=== PATIENT | female | born 1930 | race Caucasian/White ===

== ENCOUNTER 2016-07-24 08:30 | Emergency (ER) | payer MEDICARE, BC ==
[~2016-07-24] VITALS: Ht 157.5 cm; Wt 80.0 kg
[~2016-07-24 08:30] MED LIST: ADVAIR DISK1 IN; ALBUTERO3 PO; ALBUTEROL S2.5 MG/.5 IN; ALBUTEROL0.5 % IN; AMLODIPINE5 MG PO; ASPIR-TRIN325 MG OR; ASPIRIN LOW DOS81 M2 PO; ASPIRIN325 MG PO; ASPIRIN81 MG PO; AVELOX400 MG PO; BAYER ASA325 MG OR; BLOOD PRESSURE MED; CEPHALEXIN500 MG PO; CIPRO XR500 MG OR; CLARITIN10 M2 PO; CRESTOR20 MG OR; DILANTIN100 MG OR; DILANTIN100 MG PO; DIOVAN160 MG PO; DIOVAN40 MG OR; DIOVAN80 MG PO; DULERA INHALER IN; DULERA1 AE1 IN; FLAGYL500 MG OR; FLONASE NASAL50 MCG; FOLIC ACID1 MG PO; IMDUR30 MG PO; IRON325 M1 PO; ISOSORB MONO120 MG PO; ISOSORB MONO60 MG PO; KEPPRA100 MG/ML PO; Levaquin PO; MAXAIR AUTOH200 MCG IN; MECLIZINE25 MG PO; MEDDOSEPAK OR; MEDDOSEPAK PO; METO100T50 PO; METO50TA52 PO; METOCLOPRAM5 MG PO; NEXIUM20 MG PO; NITRO PUMP; NITRO-DUR0.4 MG/HR TD; NITROGLYCER0.4 MG PO; NORVASC2.5 MG PO; PANTOPRAZOLE SO40 MG PO; PLAVIX75 MG PO; PROTONIX40 M2 PO; PROTONIX40 MG PO; PULMICORT0.25 MG/2 PO; RANEXA PO; SINGULAIR 10 MG10 MG PO; SINGULAIR10 MG OR; SINGULAIR10 MG PO; SPIRIVA HANDIHALER IN; SPIRIVA IN; SYMBICORT 80-4.5MCG PO; SYMBICORT1 AE1 IN; THEOPHYLLINE S200 MG PO; THEOPHYLLINE S300 MG PO; TOPROL XL OR; TOPROL XL PO; TOPROL XL50 MG OR; ULTRAM50 M1 PO; VIMPAT100 MG PO; VIMPAT50 MG PO; VYTORIN 10/201 TAB PO; VYTORIN1 TA1 OR; VYTORIN1 TA2 PO; VYTORIN1 TA3 OR; VYTORIN1 TAB PO; XANAX0.25 MG PO; ZETIA10 MG OR; ZOFRAN4 MG/TAB PO; ZPAK OR; ZPAK PO
[2016-07-24] MEDS ORDERED: ZYRTEC10 MG PO (09:09)
[2016-07-24 09:14] LABS: HEMATOCRIT 37.6 % (37.0-47.0); HEMOGLOBIN 12.2 g/dl (12.0-16.0); IMMATURE GRANULOCYTES 0.5 % (0.0-1.0); MEAN CELL VOLUME 93.1 fL CALC (80.0-100.0); MEAN CORPUSCULAR HGB 30.2 pG CALC (26.0-32.0); MEAN CORPUSCULAR HGB CONC 32.4 g/L CALC (32.0-36.0); NEUT# 4.82 thou/uL (2.00-7.15); RED BLOOD COUNT 4.04 mill/uL (4.20-5.60); RED CELL DISTRI WIDTH 14.9 % (11.5-15.5)
[2016-07-24 09:27] LABS: PROTHROMBIN TIME 10.5 SECONDS (9.0-12.5)
[2016-07-24 09:28] LABS: ALKALINE PHOSPHATASE 71 u/l (38-126); AMYLASE 99 u/l (30-110); ANION GAP 16 (6-22 (CALC)); BILIRUBIN, TOTAL 0.4 mg/dL (0.0-1.4); BUN 29 mg/dL (8-23); BUN/CREATININE RATIO 30 (12-20 (CALC)); CALCIUM 9.3 mg/dL (8.4-10.2); CARBON DIOXIDE 28 mmol/l (22-30); CHLORIDE 105 mmol/l (95-108); GFR 53 ML/MIN (>=60 (CALC)); GFR FOR AFR.AMER. > 60 ML/MIN (>=60 (CALC)); GLUCOSE 90 mg/dL (82-115); LIPASE 161 u/l (23-300); POTASSIUM 4.7 mmol/l (3.5-5.1); SGOT/AST 23 u/l (9-36); SGPT/ALT 20 u/l (11-66); SODIUM 144 mmol/l (137-146); TOTAL PROTEIN 7.4 g/dL (6.3-8.2)
[2016-07-24 09:40] LABS: MYOGLOBIN 29 ng/mL (0 - 62)
[2016-07-24 09:57] LABS: URINE BILIRUBIN - DIPSTICK NEGATIVE (NEGATIVE); URINE BLOOD DIPSTICK NEGATIVE (NEGATIVE); URINE CLARITY CLEAR; URINE COLOR YELLOW; URINE GLUCOSE - DIPSTICK NEGATIVE (NEGATIVE); URINE KETONE NEGATIVE (NEGATIVE); URINE LEUK ESTERASE TRACE (NEGATIVE); URINE NITRITE - DIPSTICK NEGATIVE (Negative); URINE PH 5.5 (4.5-8.0); URINE PROTEIN - DIPSTICK NEGATIVE (NEG-TRACE); URINE UROBILINOGEN - DIPSTICK 0.2 E.U./dL (0.2)
[2016-07-24 12:33] VITALS: BP 127/49
== END 2016-07-24 12:42 | disposition home or self-care (01) ==
LOC: ED 08:30
PROVIDERS: Emergency Medicine
DX: R53.1 Weakness (principal); I10 Essential (primary) hypertension; R07.9 Chest pain, unspecified; R94.31 Abnormal electrocardiogram [ECG] [EKG]; R51 Headache

== ENCOUNTER 2017-03-06 07:55 | Emergency (ER) | payer MEDICARE, BC ==
[~2017-03-06] VITALS: Ht 157.5 cm; Wt 70.0 kg
[~2017-03-06 07:55] MED LIST changes: +ZYRTEC10 MG PO
[2017-03-06] MEDS ORDERED: SPIRIVA HANDIH18 MCG (08:06)
[2017-03-06 08:30] LABS: ALBUMIN 4.3 g/dL (3.2-5.0); ALKALINE PHOSPHATASE 59 u/l (38-126); ANION GAP 16 (6-22 (CALC)); BILIRUBIN, TOTAL 0.9 mg/dL (0.0-1.4); BUN 31 mg/dL (8-23); BUN/CREATININE RATIO 31 (12-20 (CALC)); CALCIUM 9.6 mg/dL (8.4-10.2); CARBON DIOXIDE 24 mmol/l (22-30); CHLORIDE 111 mmol/l (95-108); GFR 53 ML/MIN (>=60 (CALC)); GFR FOR AFR.AMER. > 60 ML/MIN (>=60 (CALC)); GLUCOSE 87 mg/dL (82-115); POTASSIUM 3.9 mmol/l (3.5-5.1); SGOT/AST 24 u/l (9-36); SGPT/ALT 25 u/l (11-66); SODIUM 148 mmol/l (137-146); TOTAL PROTEIN 7.5 g/dL (6.3-8.2)
[2017-03-06 08:33] LABS: HEMATOCRIT 40.5 % (37.0-47.0); HEMOGLOBIN 13.6 g/dl (12.0-16.0); IMMATURE GRANULOCYTES 0.4 % (0.0-1.0); MEAN CELL VOLUME 97.8 fL CALC (80.0-100.0); MEAN CORPUSCULAR HGB 32.9 pG CALC (26.0-32.0); MEAN CORPUSCULAR HGB CONC 33.6 g/L CALC (32.0-36.0); NEUT# 4.6 thou/uL (2.00-7.15); RED BLOOD COUNT 4.14 mill/uL (4.20-5.60); RED CELL DISTRI WIDTH 13.6 % (11.5-15.5)
[2017-03-06 08:43] LABS: MYOGLOBIN 37 ng/mL (0 - 62)
[2017-03-06 12:24] LABS: URINE BILIRUBIN - DIPSTICK NEGATIVE (NEGATIVE); URINE BLOOD DIPSTICK NEGATIVE (NEGATIVE); URINE CLARITY CLEAR; URINE COLOR YELLOW; URINE GLUCOSE - DIPSTICK NEGATIVE (NEGATIVE); URINE KETONE NEGATIVE (NEGATIVE); URINE LEUK ESTERASE NEGATIVE (NEGATIVE); URINE NITRITE - DIPSTICK NEGATIVE (Negative); URINE PROTEIN - DIPSTICK NEGATIVE (NEG-TRACE); URINE SPECIFIC GRAVITY >=1.030; URINE UROBILINOGEN - DIPSTICK 0.2 E.U./dL (0.2)
[2017-03-06] MEDS ORDERED: LEVAQUIN500 MG PO (12:36)
[2017-03-06 12:56] VITALS: BP 141/63
== END 2017-03-06 13:13 | disposition home or self-care (01) ==
LOC: ED 07:55
PROVIDERS: Emergency Medicine
DX: J20.9 Acute bronchitis, unspecified (principal); J44.1 Chronic obstructive pulmonary disease with (acute) exacerbation; R06.02 Shortness of breath; R05 Cough; I10 Essential (primary) hypertension; I25.810 Atherosclerosis of coronary artery bypass graft(s) without angina pectoris; Z95.1 Presence of aortocoronary bypass graft

== ENCOUNTER 2017-10-29 03:05 | Observation (INO) | payer MEDICARE, BC ==
[~2017-10-29] VITALS: Ht 157.5 cm; Wt 77.6 kg
[~2017-10-29 03:05] MED LIST changes: +LEVAQUIN500 MG PO; +SPIRIVA HANDIH18 MCG
--- NOTE | 2017-10-29 03:30 | NUR ---
PT STATES THAT WHILE SHE WAS OUT OF TOWN YESTERDAY SHE DEVELOPED CHEST PAIN WITH RADIATION TO LEFT SHOULDER/LEFT BACK AREA. PT TOOK NITRO THAT WAS DATED 2016 WITH MINIMAL EFFECT. STATES LAST NITRO TAKEN DATED 2017 DID HELP SOME BUT HAS NOT RELIEVED PAIN TOTALLY. (+) HISTORY FOR BYPASS SURGERY OVER 10 YEARS AGO.
[2017-10-29 03:32] LABS: HEMOGLOBIN 13.5 g/dl (12.0-16.0); IMMATURE GRANULOCYTES 0.1 % (0.0-1.0); MEAN CELL VOLUME 96.6 fL CALC (80.0-100.0); MEAN CORPUSCULAR HGB 32.6 pG CALC (26.0-32.0); MEAN CORPUSCULAR HGB CONC 33.8 g/L CALC (32.0-36.0); NEUT# 3.47 thou/uL (2.00-7.15); RED BLOOD COUNT 4.14 mill/uL (4.20-5.60); RED CELL DISTRI WIDTH 13.8 % (11.5-15.5)
[2017-10-29] MEDS ORDERED: VYTORIN1 TAB PO (03:43)
[2017-10-29 03:48] LABS: ALBUMIN 3.9 g/dL (3.2-5.0); AMYLASE 82 u/l (30-110); BILIRUBIN, TOTAL 0.3 mg/dL (0.0-1.4); BUN 32 mg/dL (8-23); BUN/CREATININE RATIO 24 (12-20 (CALC)); CARBON DIOXIDE 25 mmol/l (22-30); CHLORIDE 106 mmol/l (95-108); CREATININE 1.3 mg/dL (0.5-1.0); GFR 39 ML/MIN (>=60 (CALC)); GFR FOR AFR.AMER. 47 ML/MIN (>=60 (CALC)); LIPASE 245 u/l (23-300); POTASSIUM 4.5 mmol/l (3.5-5.1); SGOT/AST 23 u/l (9-36); SGPT/ALT 25 u/l (11-66); TOTAL PROTEIN 6.8 g/dL (6.3-8.2)
[2017-10-29 03:50] LABS: ACT PARTIAL THROMBO TIME 26.8 SECONDS (20.0-32.5); INTERNATIONAL NORMALIZED RATIO 0.9 RATIO (0.7-1.3); PROTHROMBIN TIME 10.5 SECONDS (9.0-12.5)
[2017-10-29 03:51] LABS: ALKALINE PHOSPHATASE 104 u/l (38-126); ANION GAP 14 (6-22 (CALC)); SODIUM 140 mmol/l (137-146)
[2017-10-29] MEDS ORDERED: ASPIRIN325 MG PO (03:51)
[2017-10-29] MEDS ORDERED: THEOPHYLLINE S200 MG PO (03:54)
[2017-10-29 04:00] LABS: MYOGLOBIN 25 ng/mL (0 - 62)
[2017-10-29 04:10] LABS: URINE BILIRUBIN - DIPSTICK NEGATIVE (NEGATIVE); URINE BLOOD DIPSTICK NEGATIVE (NEGATIVE); URINE COLOR YELLOW; URINE GLUCOSE - DIPSTICK NEGATIVE (NEGATIVE); URINE KETONE NEGATIVE (NEGATIVE); URINE LEUK ESTERASE NEGATIVE (NEGATIVE); URINE NITRITE - DIPSTICK NEGATIVE (Negative); URINE PH 5.5 (4.5-8.0); URINE PROTEIN - DIPSTICK NEGATIVE (NEG-TRACE); URINE SPECIFIC GRAVITY 1.025; URINE UROBILINOGEN - DIPSTICK 0.2 E.U./dL (0.2)
[2017-10-29 04:11] LABS: URINE CLARITY CLEAR
--- NOTE | 2017-10-29 04:19 | NUR ---
PT GIVES CHEST PAIN A 0-1 SCORE. STATES THAT NTG PILL IS TAKING PAIN AWAY. MORPHINE WITHHELD DUE TO DECREASED B/P.
--- NOTE | 2017-10-29 04:48 | NUR ---
pt resting comfortably at this time. Rates pain at 0 on 1:10 scale. Daughter at bedside.
--- NOTE | 2017-10-29 05:43 | NUR ---
Pt resting comfortably at this time. Pain free & awaiting room assignment. All test results back at this time. Troponin NEG.
--- NOTE | 2017-10-29 06:10 | NUR ---
Report called to Chitra MCCAIN in ICU. Transported on gurney to room with portable monitor.
--- NOTE | 2017-10-29 06:20 | NUR ---
PT TO UNIT VIA STRETCHER ACCOMPANIED BY ER STAFF. PT AMBULATED TO BED WITH MINIMAL ASSISTANCE. PT ORIENTED TO ROOM AND UNIT. DAUGHTER IN ROOM. PT AND DAUGHTER VERBALIZED UNDERSTANDING. CALL LIGHT IN REACH. WILL CONTINUE TO MONITOR
[2017-10-29 06:30] VITALS: BP 158/59
--- NOTE | 2017-10-29 07:45 | NUR ---
SHIFT CHANGE REPORT FROM AGGIE, PT AWAKE ALERT AND ORIENTED RESTING IN BED, C/O MILD CHEST PAIN AND HEADACHE, NITRO PATCH IN PLACE ON LEFT CHEST, CARDIAC AND VITALS MONITORING IN PROGRESS, ASSISTED PT TO BR AND BACK TO BED, ADMISSION ASSESSMENT DONE, WILL CONTINUE TO MONITOR, DAUGHTER AT BEDSIDE, CALL RAE IN REACH.
[2017-10-29 12:00] VITALS: BP 143/55
--- NOTE | 2017-10-29 13:16 | NUR ---
RELAXING IN BED AFTER CONSUMING MEAL, FAMILY VISITING, ALL NEEDS ADDRESSED, CALL RAE IN REACH.
--- NOTE | 2017-10-29 15:33 | NUR ---
SLEEPING AT THIS TIME, APPEARS COMFORTABLE WITH NON-LABORED BREATHING, MONITORS IN PLACE, CALL RAE IN REACH.
[2017-10-29 16:08] VITALS: BP 140/58
[2017-10-29 19:55] VITALS: BP 150/59
--- NOTE | 2017-10-29 19:55 | NUR ---
RECEIVED PT FROM ICU VIA WHEELCHAIR IN STABLE CONDITION AND ACCOMPANIED BY FAMILY. PT ALERT AND ORIENTED X 3 AND REPORTS MINOR HEADACHE. PT HAS NIRTIOGLYCERIN PASTE IN PLACE TO JACQUELIN. EDUCATE PT ON THE SIDE EFFECTS OF NITRO. PT VERBALIZES UNDERSTANDING. NO APPARENT ACUTE DISTRESS NOTED. WILL CONTINUE TO MONITOR.
--- NOTE | 2017-10-30 | NUR ---
PT RESTING WELL AND APPEARS NOT TO BE IN ANY APPARENT ACUTE DISTRTESS. WILL CONTINUE TO MONITOR.
[2017-10-30 00:37] VITALS: BP 118/58
--- NOTE | 2017-10-30 05:00 | NUR ---
PT SLEPT WELL DURING THE NIGHT. NO APPARENT ACUTE CHANGES NOTED IN PT'S CONDITION.
[2017-10-30 05:12] VITALS: BP 121/54
[2017-10-30 05:16] LABS: HEMATOCRIT 39.3 % (37.0-47.0); HEMOGLOBIN 12.9 g/dl (12.0-16.0); IMMATURE GRANULOCYTES 0.2 % (0.0-1.0); MEAN CELL VOLUME 96.6 fL CALC (80.0-100.0); MEAN CORPUSCULAR HGB 31.7 pG CALC (26.0-32.0); MEAN CORPUSCULAR HGB CONC 32.8 g/L CALC (32.0-36.0); NEUT# 2.82 thou/uL (2.00-7.15); RED BLOOD COUNT 4.07 mill/uL (4.20-5.60); RED CELL DISTRI WIDTH 13.6 % (11.5-15.5)
[2017-10-30 05:37] LABS: ANION GAP 10 (6-22 (CALC)); BUN 24 mg/dL (8-23); BUN/CREATININE RATIO 24 (12-20 (CALC)); CALCULATED LDLCHOLESTEROL 128 mg/dL (62-129 (CALC)); CARBON DIOXIDE 26 mmol/l (22-30); CHLORIDE 108 mmol/l (95-108); CHOLESTEROL HDL RATIO 3.1 (<4.4 (CALC)); GFR 53 ML/MIN (>=60 (CALC)); GFR FOR AFR.AMER. > 60 ML/MIN (>=60 (CALC)); HDL CHOLESTEROL 73 mg/dL (>=40); POTASSIUM 4.7 mmol/l (3.5-5.1); SODIUM 139 mmol/l (137-146); TOTAL TRIGLYCERIDES 137 mg/dl (30-149); VLDL CHOLESTROL 27 mg/dl (0-48 (CALC))
[2017-10-30 05:38] LABS: TOTAL CHOLESTEROL 228 mg/dl (0-199)
--- NOTE | 2017-10-30 07:22 | NUR ---
RECEIVED BEDSIDE REPORT FROM CAMILLA MCCAIN. RESTING IN SUPINE POSITION WITH EYES CLOSED, AWAKEN SEASILY. RESPS EVEN AND UNLABORED ON O2 VIA NC, TELE MONITOR IN PLACE. DENIES PAIN OR DISCOMFORT. PLAN OF CARE DISCUSSED. SAFETY PRECAUTIONS REINFORCED. BED IN LOWEST POSITION WITH WHEELS LOCKED. CALL LIGHT WITHIN REACH. ENCOURAGED PT TO CALL FOR ANY NEEDS.
[2017-10-30 07:54] VITALS: BP 165/62
--- NOTE | 2017-10-30 11:50 | NUR ---
SITTING IN BEDSIDE CHAIR, VISITORS AT BEDSIDE. RESPS EVEN AND UNLABORED ON ROOM AIR, TELE MONITOR IN PLACE. DENIES PAIN OR DISCOMFORT. CALL LIGHT WITHIN REACH. WILL CONTINUE TO MONITOR.
[2017-10-30 12:00] VITALS: BP 144/67
[2017-10-30 12:35] VITALS: BP 165/62
--- NOTE | 2017-10-30 12:40 | NUR ---
DR GIBSON AT BEDSIDE, NEW ORDERS RECEIVED.
--- NOTE | 2017-10-30 13:05 | NUR ---
DR LUI AT BEDSIDE, NEW ORDERS RECEIVED.
[2017-10-30] MEDS ORDERED: MEDDOSEPAK PO (13:20)
--- NOTE | 2017-10-30 13:58 | NUR ---
IV site discontinued, cath intact. No edema , no redness, voices no discomfort.
--- NOTE | 2017-10-30 14:02 | NUR ---
Discharge instructions given. Patient verbalizes understanding of same. Discharged in stable condition via Wheelchair to Home with family. All belongings sent with pt.
== END 2017-10-30 14:04 ==
LOC: ED 03:05 → ED-I 05:33 → ED 05:54 → MS2 05:57 → ICU 05:57 → MS2 20:02
PROVIDERS: Emergency Medicine; Nurse Practitioner; ADMIT Internal Medicine; ATTEND Internal Medicine
DX: I25.118 Atherosclerotic heart disease of native coronary artery with other forms of angina pectoris (principal); I13.10 Hypertensive heart and chronic kidney disease without heart failure, with stage 1 through stage 4 chronic kidney disease, or unspecified chronic kidney disease; N18.3 Chronic kidney disease, stage 3 (moderate); E78.5 Hyperlipidemia, unspecified; I65.22 Occlusion and stenosis of left carotid artery; T82.897A Other specified complication of cardiac prosthetic devices, implants and grafts, initial encounter; J44.9 Chronic obstructive pulmonary disease, unspecified; R01.1 Cardiac murmur, unspecified; R06.02 Shortness of breath; Y83.2 Surgical operation with anastomosis, bypass or graft as the cause of abnormal reaction of the patient, or of later complication, without mention of misadventure at the time of the procedure; Z95.1 Presence of aortocoronary bypass graft; Z95.5 Presence of coronary angioplasty implant and graft; Z85.3 Personal history of malignant neoplasm of breast; Z86.73 Personal history of transient ischemic attack (TIA), and cerebral infarction without residual deficits

== ENCOUNTER 2018-04-22 19:04 | Emergency (ER) | payer MEDICARE, BC ==
[~2018-04-22] VITALS: Ht 157.5 cm; Wt 77.3 kg
[2018-04-22] MEDS ORDERED: THEOPHYLLINE S300 MG PO (19:33)
[2018-04-22 22:20] VITALS: BP 162/72
== END 2018-04-22 22:27 | disposition home or self-care (01) ==
LOC: ED 19:04
DX: S02.32XA Fracture of orbital floor, left side, initial encounter for closed fracture (principal); S05.12XA Contusion of eyeball and orbital tissues, left eye, initial encounter; S80.01XA Contusion of right knee, initial encounter; R51 Headache; R22.0 Localized swelling, mass and lump, head; W01.198A Fall on same level from slipping, tripping and stumbling with subsequent striking against other object, initial encounter; Y93.01 Activity, walking, marching and hiking; Y92.008 Other place in unspecified non-institutional (private) residence as the place of occurrence of the external cause; J32.0 Chronic maxillary sinusitis; J32.2 Chronic ethmoidal sinusitis

== ENCOUNTER 2018-07-26 13:38 | Outpatient (REF) | payer MEDICARE, BC | END 2018-07-26 15:16 | disposition home or self-care (01) | LOC: INF 13:38 | PROVIDERS: ATTEND Internal Medicine | DX: M81.0 Age-related osteoporosis without current pathological fracture (principal); N18.9 Chronic kidney disease, unspecified | CPT/HCPCS: J0897 ==

== ENCOUNTER 2019-05-12 | Emergency (ER) | payer MEDICARE, BC ==
[2019-05-12] MEDS ORDERED: TRAMADOL HYDROC50 M1 PO (16:09)
== END 2019-05-12 16:33 | disposition home or self-care (01) ==
DX: S20.211A Contusion of right front wall of thorax, initial encounter (principal); S30.0XXA Contusion of lower back and pelvis, initial encounter; S40.012A Contusion of left shoulder, initial encounter; S40.022A Contusion of left upper arm, initial encounter; I10 Essential (primary) hypertension; I25.10 Atherosclerotic heart disease of native coronary artery without angina pectoris; W01.0XXA Fall on same level from slipping, tripping and stumbling without subsequent striking against object, initial encounter; Y93.E9 Activity, other interior property and clothing maintenance; Y92.003 Bedroom of unspecified non-institutional (private) residence as the place of occurrence of the external cause; Z95.1 Presence of aortocoronary bypass graft

== ENCOUNTER 2019-05-23 19:46 | Emergency (ER) | payer MEDICARE, BC ==
[~2019-05-23 19:46] MED LIST changes: +TRAMADOL HYDROC50 M1 PO
[2019-05-23 22:43] VITALS: BP 172/80
== END 2019-05-23 22:43 | disposition home or self-care (01) ==
LOC: ED 19:46
DX: I10 Essential (primary) hypertension (principal); I25.10 Atherosclerotic heart disease of native coronary artery without angina pectoris; Z95.1 Presence of aortocoronary bypass graft

== ENCOUNTER 2020-03-16 09:01 | Observation (INO) | payer MEDICARE, BC ==
[~2020-03-16] VITALS: Ht 157.5 cm; Wt 78.4 kg
[2020-03-16 09:39] LABS: IMMATURE GRANULOCYTES 0.4 % (0.0-5.0); MEAN CELL VOLUME 96.8 fL CALC (80.0-100.0); MEAN CORPUSCULAR HGB 30.3 pG CALC (26.0-32.0); MEAN CORPUSCULAR HGB CONC 31.3 g/dL CAL (32.0-36.0); NEUT# 6.16 thou/uL (2.00-7.15); RED BLOOD COUNT 4.36 mill/uL (4.20-5.60); RED CELL DISTRI WIDTH 16.4 % (11.5-15.5)
[2020-03-16] MEDS ORDERED: PREDNISONE10 MG PO (09:44)
[2020-03-16] MEDS ORDERED: DOXYCYCLINE100 MG PO (09:44)
[2020-03-16 09:51] LABS: ALBUMIN 3.8 g/dL (3.2-5.0); ALKALINE PHOSPHATASE 45 u/l (38-126); ANION GAP 11 (6-22 (CALC)); BUN 22 mg/dL (8-23); BUN/CREATININE RATIO 23 (12-20 (CALC)); CARBON DIOXIDE 29 mmol/l (22-30); CHLORIDE 104 mmol/l (95-108); CREATININE 0.9 mg/dL (0.5-1.0); GFR 59 ML/MIN (>=60 (CALC)); GFR FOR AFR.AMER. > 60 ML/MIN (>=60 (CALC)); POTASSIUM 4.5 mmol/l (3.5-5.1); SGOT/AST 20 u/l (9-36); SODIUM 140 mmol/l (137-146); TOTAL PROTEIN 6.2 g/dL (6.3-8.2)
[2020-03-16 09:53] LABS: BILIRUBIN, TOTAL 0.7 mg/dL (0.0-1.4)
[2020-03-16 09:54] LABS: HEMATOCRIT 42.2 % (37.0-47.0); HEMOGLOBIN 13.2 g/dl (12.0-16.0)
[2020-03-16 13:30] VITALS: BP 145/60
[2020-03-16 15:00] VITALS: BP 146/65
[2020-03-16 18:55] VITALS: BP 121/58
[2020-03-16 23:57] VITALS: BP 155/69
[2020-03-17 04:44] VITALS: BP 208/80
[2020-03-17 05:11] VITALS: BP 208/84
[2020-03-17 05:28] LABS: HEMATOCRIT 41.7 % (37.0-47.0); HEMOGLOBIN 13.1 g/dl (12.0-16.0); IMMATURE GRANULOCYTES 0.4 % (0.0-5.0); MEAN CELL VOLUME 95.4 fL CALC (80.0-100.0); MEAN CORPUSCULAR HGB CONC 31.4 g/dL CAL (32.0-36.0); NEUT# 5.72 thou/uL (2.00-7.15); RED BLOOD COUNT 4.37 mill/uL (4.20-5.60); RED CELL DISTRI WIDTH 16.3 % (11.5-15.5)
[2020-03-17 06:09] LABS: MAGNESIUM 2.2 mg/dL (1.6-2.3)
[2020-03-17 06:24] VITALS: BP 174/60
[2020-03-17 08:30] VITALS: BP 136/56
[2020-03-17 10:40] VITALS: BP 122/47
[2020-03-17] MEDS ORDERED: MECLIZINE25 MG PO (12:05)
== END 2020-03-17 13:18 | disposition home or self-care (01) ==
LOC: ED 09:01 → ED-I 10:26 → MS2 11:06 → ED 11:06 → MS2 11:07
PROVIDERS: Family Medicine; Nurse Practitioner; ADMIT Internal Medicine; ATTEND Internal Medicine
DX: R07.9 Chest pain, unspecified (principal); R42 Dizziness and giddiness; I10 Essential (primary) hypertension; I25.10 Atherosclerotic heart disease of native coronary artery without angina pectoris; E78.5 Hyperlipidemia, unspecified; J44.9 Chronic obstructive pulmonary disease, unspecified; I73.9 Peripheral vascular disease, unspecified; Z95.1 Presence of aortocoronary bypass graft; Z86.73 Personal history of transient ischemic attack (TIA), and cerebral infarction without residual deficits; Z20.828 Contact with and (suspected) exposure to other viral communicable diseases
CPT/HCPCS: G0378; J1650

== ENCOUNTER 2020-09-18 23:44 | Emergency (ER) | payer MEDICARE, BC ==
[~2020-09-18 23:44] MED LIST changes: +DOXYCYCLINE100 MG PO; +PREDNISONE10 MG PO
[2020-09-19] MEDS ORDERED: BACTRIM DS1 TAB PO (00:16)
[2020-09-19 01:16] VITALS: BP 162/78
== END 2020-09-19 01:20 | disposition home or self-care (01) ==
LOC: ED 23:44
DX: S41.111A Laceration without foreign body of right upper arm, initial encounter (principal); S61.411A Laceration without foreign body of right hand, initial encounter; S81.811A Laceration without foreign body, right lower leg, initial encounter; S81.812A Laceration without foreign body, left lower leg, initial encounter; I10 Essential (primary) hypertension; I25.10 Atherosclerotic heart disease of native coronary artery without angina pectoris; J45.909 Unspecified asthma, uncomplicated; W01.0XXA Fall on same level from slipping, tripping and stumbling without subsequent striking against object, initial encounter; Y92.009 Unspecified place in unspecified non-institutional (private) residence as the place of occurrence of the external cause; Z95.1 Presence of aortocoronary bypass graft

== ENCOUNTER 2020-12-31 12:16 | Observation (INO) | payer MEDICARE, BC ==
[~2020-12-31] VITALS: Ht 157.5 cm; Wt 79.4 kg
[~2020-12-31 12:16] MED LIST changes: +BACTRIM DS1 TAB PO
[2020-12-31 13:14] LABS: HEMATOCRIT 38.6 % (37.0-47.0); HEMOGLOBIN 12.1 g/dl (12.0-16.0); IMMATURE GRANULOCYTES 0.3 % (0.0-5.0); MEAN CELL VOLUME 97.2 fL CALC (80.0-100.0); MEAN CORPUSCULAR HGB 30.5 pG CALC (26.0-32.0); MEAN CORPUSCULAR HGB CONC 31.3 g/dL CAL (32.0-36.0); NEUT# 9.69 thou/uL (2.00-7.15); RED BLOOD COUNT 3.97 mill/uL (4.20-5.60); RED CELL DISTRI WIDTH 12.9 % (11.5-15.5)
[2020-12-31 13:29] LABS: LIPASE 108 u/l (23-300)
[2020-12-31 13:40] LABS: URINE BILIRUBIN - DIPSTICK NEGATIVE (NEGATIVE); URINE BLOOD DIPSTICK NEGATIVE (NEGATIVE); URINE COLOR YELLOW; URINE GLUCOSE - DIPSTICK NEGATIVE (NEGATIVE); URINE KETONE NEGATIVE (NEGATIVE); URINE LEUK ESTERASE NEGATIVE (NEGATIVE); URINE PROTEIN - DIPSTICK NEGATIVE (NEG-TRACE); URINE UROBILINOGEN - DIPSTICK 0.2 E.U./dL (0.2)
[2020-12-31 13:42] LABS: URINE NITRITE - DIPSTICK NEGATIVE (Negative)
[2020-12-31 13:52] LABS: ALBUMIN 3.6 g/dL (3.2-5.0); ALKALINE PHOSPHATASE 46 u/l (38-126); ANION GAP 10 (6-22 (CALC)); BILIRUBIN, TOTAL 0.5 mg/dL (0.0-1.4); BUN 19 mg/dL (8-23); BUN/CREATININE RATIO 20 (12-20 (CALC)); CARBON DIOXIDE 31 mmol/l (22-30); CHLORIDE 99 mmol/l (95-108); GFR 52 ML/MIN (>=60 (CALC)); GFR FOR AFR.AMER. > 60 ML/MIN (>=60 (CALC)); POTASSIUM 3.6 mmol/l (3.5-5.1); SGOT/AST 19 u/l (9-36); SODIUM 136 mmol/l (137-146)
[2020-12-31 13:53] LABS: ACT PARTIAL THROMBO TIME 20.2 SECONDS (20.0-32.5); PROTHROMBIN TIME 10.6 SECONDS (9.0-12.5)
[2020-12-31] MEDS ORDERED: RANOLAZINE ER500 MG PO (18:09)
[2020-12-31] MEDS ORDERED: XANAX0.25 MG PO (18:11)
[2020-12-31] MEDS ORDERED: REGLAN10 MG PO (18:12)
[2020-12-31] MEDS ORDERED: QVAR REDIH80 MCG/ACT IN (18:16)
[2020-12-31] MEDS ORDERED: ALBUTEROL SUL0.083 % IN (18:20)
[2020-12-31 19:38] VITALS: BP 147/68
[2020-12-31 23:45] VITALS: BP 148/57
[2021-01-01 06:15] LABS: HEMATOCRIT 41.1 % (37.0-47.0); HEMOGLOBIN 12.8 g/dl (12.0-16.0); MEAN CELL VOLUME 97.4 fL CALC (80.0-100.0); MEAN CORPUSCULAR HGB 30.3 pG CALC (26.0-32.0); MEAN CORPUSCULAR HGB CONC 31.1 g/dL CAL (32.0-36.0); RED BLOOD COUNT 4.22 mill/uL (4.20-5.60)
[2021-01-01 06:37] LABS: ANION GAP 11 (6-22 (CALC)); BUN 18 mg/dL (8-23); BUN/CREATININE RATIO 21 (12-20 (CALC)); CARBON DIOXIDE 29 mmol/l (22-30); CHLORIDE 102 mmol/l (95-108); CREATININE 0.8 mg/dL (0.5-1.0); GFR > 60 ML/MIN (>=60 (CALC)); GFR FOR AFR.AMER. > 60 ML/MIN (>=60 (CALC)); MAGNESIUM 2.2 mg/dL (1.6-2.3); SODIUM 138 mmol/l (137-146); TOTAL CHOLESTEROL 212 mg/dl (0-199); TOTAL TRIGLYCERIDES 128 mg/dl (30-149); VLDL CHOLESTROL 26 mg/dl (0-48 (CALC))
[2021-01-01 06:48] LABS: CALCULATED LDLCHOLESTEROL 72 mg/dL (62-129 (CALC)); CHOLESTEROL HDL RATIO 1.9 (<4.4 (CALC)); HDL CHOLESTEROL 114 mg/dL (>=40)
[2021-01-01 07:00] VITALS: BP 155/77
[2021-01-01 10:15] VITALS: BP 155/77
== END 2021-01-01 11:40 | disposition home or self-care (01) ==
LOC: ED 12:16 → ED-I 14:16 → ED 15:08 → ED-I 15:09
PROVIDERS: Family Medicine; Nurse Practitioner; Physician Assistant Surgical; ADMIT Hospitalist; ATTEND Hospitalist
DX: R07.9 Chest pain, unspecified (principal); D72.829 Elevated white blood cell count, unspecified; I12.9 Hypertensive chronic kidney disease with stage 1 through stage 4 chronic kidney disease, or unspecified chronic kidney disease; N18.30 Chronic kidney disease, stage 3 unspecified; I25.10 Atherosclerotic heart disease of native coronary artery without angina pectoris; J44.9 Chronic obstructive pulmonary disease, unspecified; E78.5 Hyperlipidemia, unspecified; I73.9 Peripheral vascular disease, unspecified; G40.909 Epilepsy, unspecified, not intractable, without status epilepticus; Z86.73 Personal history of transient ischemic attack (TIA), and cerebral infarction without residual deficits; Z95.1 Presence of aortocoronary bypass graft; Z95.5 Presence of coronary angioplasty implant and graft; Z85.3 Personal history of malignant neoplasm of breast; Z92.3 Personal history of irradiation; Z20.822 Contact with and (suspected) exposure to COVID-19
CPT/HCPCS: J1650; Q9967

== ENCOUNTER 2021-03-10 17:39 | Emergency (ER) | payer MEDICARE, BC ==
[~2021-03-10] VITALS: Ht 157.5 cm; Wt 77.0 kg
[~2021-03-10 17:39] MED LIST changes: +ALBUTEROL SUL0.083 % IN; +QVAR REDIH80 MCG/ACT IN; +RANOLAZINE ER500 MG PO; +REGLAN10 MG PO
[2021-03-10] MEDS ORDERED: BACTROBAN TOP (19:23)
[2021-03-10] MEDS ORDERED: DOXYCYCLINE100 MG PO (19:23)
[2021-03-10 20:30] VITALS: BP 211/77
== END 2021-03-10 20:30 | disposition home or self-care (01) ==
LOC: ED 17:39
DX: L03.115 Cellulitis of right lower limb (principal); S81.811A Laceration without foreign body, right lower leg, initial encounter; I10 Essential (primary) hypertension; I25.10 Atherosclerotic heart disease of native coronary artery without angina pectoris; J45.909 Unspecified asthma, uncomplicated; W22.8XXA Striking against or struck by other objects, initial encounter; Z95.1 Presence of aortocoronary bypass graft; Z96.653 Presence of artificial knee joint, bilateral